=== PATIENT | female | born 2000 | race Caucasian/White ===

== ENCOUNTER 2019-07-27 18:54 | Emergency (ER) | payer OTHER ==
[~2019-07-27] VITALS: Ht 165.1 cm; Wt 108.9 kg
[2019-07-27 19:08] VITALS: BP 140/76
[2019-07-27] MEDS ORDERED: AMOXICILLIN875 MG PO (19:25)
== END 2019-07-27 19:35 | disposition home or self-care (01) ==
LOC: M.ERS 18:54
DX: J03.90 Acute tonsillitis, unspecified (principal)